=== PATIENT | female | born 1965 | race Caucasian/White ===

== ENCOUNTER 2020-06-28 07:40 | Emergency (ER) | payer BC ==
[~2020-06-28] VITALS: Ht 152.4 cm; Wt 52.2 kg
--- OUTSIDE RECORDS SUMMARY | 2020-06-28 07:42 | XMS ---
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 Alexsandra VISIT COUNT (12 MO.) 2 [facility] TOTAL 2 NOTE: Visits indicate total known visits. ED/UCC VISIT TRACKING (12 MO.) 06/28/2020 07:40 [facility] TYPE: Emergency COMPLAINT: - RIGHT ANKLE PAIN 06/24/2020 09:38 [facility] TYPE: Emergency COMPLAINT: - DOG BITE DIAGNOSES: - Bitten by dog, initial encounter - Open bite of left middle finger without damage to nail, initial encounter - Allergy status to narcotic agent INPATIENT VISIT TRACKING (12 MO.) No inpatient visits to display in this time frame [id number]
== END 2020-06-28 08:38 | disposition home or self-care (01) ==
LOC: ED 07:40
DX: S93.401A Sprain of unspecified ligament of right ankle, initial encounter (principal); X50.9XXA Other and unspecified overexertion or strenuous movements or postures, initial encounter; Z88.5 Allergy status to narcotic agent
CPT/HCPCS: 73630; 99283-25

== ENCOUNTER 2025-08-08 08:50 | Day surgery (SDC) | payer OTHER ==
[~2025-08-08] VITALS: Ht 152.4 cm; Wt 59.0 kg
[~2025-08-08 08:50] MED LIST: CEFAZOLIN SODIUM 2 GM in SODIUM CHLORIDE 0.9% 100 ML IV SCH; HYDROCODON-ACE1 EAC8 PO; IBLOOD GLUCOSE TEST STRIP 1 EA TEST VI PRN; LACTATED RINGER'S 1,000 ML IV SCH; LIDOCAINE HCL 1% 5 ML SDV INJ ONE
[2025-08-08 09:15] VITALS: BP 144/72
[2025-08-08] MEDS ORDERED: LIDOCAINE HCL 2% 5 ML SDV ONE ×2 (09:37→11:42)
[2025-08-08] MEDS ORDERED: MIDAZOLAM HCL 2 MG/2 ML VIAL ONE (09:37)
[2025-08-08] MEDS ORDERED: fentaNYL citrate 100 MCG/2 ML VIAL ONE ×3 (09:37→12:53)
[2025-08-08] MEDS ORDERED: Ropivacaine HCl 0.5% 30 ML VIAL ONE (09:37)
[2025-08-08] MEDS ORDERED: SODIUM CHLORIDE 0.9% 20 ML IV ONE (09:37)
[2025-08-08] MEDS ORDERED: DEXAMETHASONE SOD PHOS 10 MG/ML VIAL ONE (09:38)
[2025-08-08] MEDS ORDERED: SEVOFLURANE 250 ML BTL INH ONE (10:59)
--- NOTE | 2025-08-08 11:09 | NUR ---
WARM BLANKETS GIVEN AND BLOCK INFORMATION GIVEN, PT REPORTS SHE IS UNABLE TO FEEL HER FOOT.
[2025-08-08] MEDS ORDERED: OXYCODONE HCL 5 MG TAB PO PRN (11:30)
[2025-08-08] MEDS ORDERED: KETOROLAC TROMETHAMINE 15 MG/ML VIAL IV PRN (11:30)
[2025-08-08] MEDS ORDERED: DEXAMETHASONE SOD PHOS 4 MG/ML VIAL ONE (12:02)
[2025-08-08] MEDS ORDERED: ACETAMINOPHEN 1,000 MG/100 ML VIAL ONE (12:12)
[2025-08-08] MEDS ORDERED: DICLOFENAC SODI75 MG PO (13:13)
[2025-08-08] MEDS ORDERED: ASPIRIN325 MG PO (13:13)
[2025-08-08] MEDS ORDERED: OXYCODONE HCL5 M1 PO (13:14)
[2025-08-08] MEDS ORDERED: KETOROLAC TROMETHAMINE 30 MG/ML VIAL ONE (13:15)
--- NOTE | 2025-08-08 13:33 | NUR ---
08/08/25 Yonathan3 Edie Kennedy 1317 PT TO PACU SLEEPING ORAL AIRWAY IN PLACE O2 VIA MASK FOGGING NOTED IN MASK.
[2025-08-08 14:09] VITALS: BP 141/77
--- NOTE | 2025-08-08 14:16 | NUR ---
PT ARRIVED FROM PACU TO ROOM 5, PT DENEIS CONCERNS AND FAMILY AT BEDSIDE. PT RESTING WITH EYES CLOSED. O2 TURNED OFF AND O2 DECREASED TO 89%, 2L NC CONTINUED AND O2 INCREASED TO MID 90S WHILE ASLEEP. CRYO CUFF IN PLACE AND PT REPORTS SHE IS UNABLE TO FEEL HER LEFT FOOT OR MOVE IT, EDUCAITON GIVEN ON BLOCK. ALL QUESTIONS ANSWERED AND WATER AT BEDSIDE. PLAN OF CARE DISCUSSED. VSS. CALL LIGHT WITHIN REACH.
[2025-08-08 15:00] VITALS: BP 129/70
[2025-08-08 16:00] VITALS: BP 138/73
--- NOTE | 2025-08-08 16:05 | NUR ---
1500 RN TO ROOM AND VSS. PT REPORTS WANTING TO DRINK WATER, PT SIPPING WATER AND HOB INCREASED. PT REPORTS PAIN AT TOP OF SURGICAL SITE. 1515 MILAN-CAROLYN AT BEDSIDE AND DRESSING REDRESSED WITH ALLEVYN X2, ABD, AND SMILEY WRAP AND BRACE IN PLACE. PT REPORTS DECREASED PAIN. O2 REMOVED. 1530 PT UP TO COMMODE AT BEDSIDE WITH RN HELP, PT PIVOTS ON RIGHT LEG. PT DENIES CONCERNS. O2 REMAINS ABOVE 95% ON RA. 1605 DC INSTRUCTIONS GIVEN AND ALL QUESITONS ANSWERED. PT DRESSED WITH AT BEDSIDE. PT DC VIA WC WITH CRYO CUFF AND ALL PAPERWORK AND VERBALIZED UNDERSTANDING OF RX AT PHARMACY.
[2025-08-08] MEDS ORDERED: SENNOSIDES 1 TAB PO SCH (21:00)
[2025-08-08] MEDS ORDERED: DICLOFENAC SOD 75 MG TABEC PO SCH (21:00)
[2025-08-08] MEDS ORDERED: ASPIRIN 325 MG TAB PO SCH (21:00)
--- NOTE | 2025-08-11 07:54 | OR ---
[facility] [address], [place] [address] Signed DATE OF OPERATION: 08/08/2025 SURGEON: Faviola Kennedy MD PREOPERATIVE DIAGNOSIS: Left lateral tibial plateau fracture. POSTOPERATIVE DIAGNOSIS: Left lateral tibial plateau fracture. PROCEDURE PERFORMED: Open reduction and internal fixation of left lateral tibial plateau fracture LETTUCE CUTTER: Brissa Atwood PA-C. Brissa was present and critical for all portions of procedure. ANESTHESIA: General. BLOOD LOSS: None. TOURNIQUET TIME: 57 minutes. IMPLANTS: Arthrex small plate with six screws. BRIEF HISTORY: Jason is a 60-year-old female who suffered a tibial plateau fracture while avoiding a bull who was chasing her. She had depression and split of the significant portion of the lateral plateau. Risks and benefits of operative treatment were discussed with her and she elected to proceed. DESCRIPTION OF PROCEDURE: Once consent was obtained, she was taken to the operating room. After adequate anesthesia, she was placed on the OR table with a hip bump. The leg was then prepped and draped in a standard sterile fashion, exsanguinated using Esmarch bandage and tourniquet inflated to 250 mmHg. A standard curvilinear incision was made to the Electronically Signed By: FAVIOLA KENNEDY MD 08/11/25 0754 PATIENT NAME: JASON PATTERSON OPERATIVE REPORT DATE OF : 61 REPORT #: [id number] PHYSICIAN: FAVIOLA KENNEDY MD PCP: NO PRIMARY CARE PHYSICIAN REPORT IS CONFIDENTIAL AND NOT TO BE RELEASED WITHOUT AUTHORIZATION [facility] [address], [place] [address] Signed lateral tibial plateau. This was taken down to the periosteum, which was found to be torn from the fracture. This was elevated and the joint line was opened just under the meniscus. The knee was irrigated and the blood clot and debris in the knee were removed. The fracture was then reduced using a pointed tenaculum and a dental pick. Once we had in proper position, it was then clamped with a tenaculum. This was then held with several 1.5 mm K-wires. The small plate was then fashioned to fit to the lateral aspect of the tibia. Once it was in position, a K-wire was used to secure it proximally. A screw was then placed in the slotted spot in the distal portion of the plate. This was checked using image intensifier. There was good reduction and good plate placement and screw lengths. The three subarticular screws were then placed in a locking fashion. A kickstand screw was then placed and the far distal screw was placed. Once this was completed, final radiograph showed good reduction and good plate placement of screw lengths. The pins were removed and the wound was copiously irrigated as was the knee joint itself. The arthrotomy was closed using 0 Monocryl. The fascia was closed using 0 Stratafix, subcutaneous tissue with 2-0 Stratafix and the skin with gabo. The wounds were dressed with an Allevyn dressing, ABD, and James wrap. She was placed back into her hinged knee brace and taken to recovery room in satisfactory condition. All sponge, needle, and instrument counts were correct. Faviola Kennedy MD BA/MODL /[id number] Copies: ~ Electronically Signed By: FAVIOLA KENNEDY MD 08/11/25 0754 PATIENT NAME: JASON PATTERSON OPERATIVE REPORT DATE OF : 61 REPORT #: [id number] PHYSICIAN: FAVIOLA KENNEDY MD PCP: NO PRIMARY CARE PHYSICIAN REPORT IS CONFIDENTIAL AND NOT TO BE RELEASED WITHOUT AUTHORIZATION
== END 2025-08-08 16:05 | disposition home or self-care (01) ==
LOC: DS 08:50
PROVIDERS: ATTEND Specialist
PROC: 3E0T3BZ Introduction of Anesthetic Agent into Peripheral Nerves and Plexi, Percutaneous Approach (ICD-10-PCS; 2025-08-08)
PROC: 3E0T3BZ Introduction of Anesthetic Agent into Peripheral Nerves and Plexi, Percutaneous Approach (ICD-10-PCS; 2025-08-08)
PROC: 0QSH04Z Reposition Left Tibia with Internal Fixation Device, Open Approach (ICD-10-PCS; principal; 2025-08-08 11:10)
DX: S82.142A Displaced bicondylar fracture of left tibia, initial encounter for closed fracture (principal); Z88.5 Allergy status to narcotic agent; Z87.891 Personal history of nicotine dependence; X58.XXXA Exposure to other specified factors, initial encounter
CPT/HCPCS: 01392; 73560; J0131; J0688; J1100; J1885; J2003; J2250; J2405; J2704; J2795; J3010; J7121